=== PATIENT | female | born 1995 | race Caucasian/White ===

== ENCOUNTER 2018-11-02 06:38 | Inpatient (IN) | payer OTHER ==
[2018-11-02] MEDS ORDERED: Butorphanol Tartrate 1 MG/ML VIAL ONE (07:21)
[2018-11-02 07:23] VITALS: BMI 31.4
[2018-11-02] MEDS ORDERED: Fentanyl 4 mcg/Bup 0.1% Cadd 100 ML ONE (07:27)
[2018-11-02] MEDS ORDERED: OXYTOCIN IV SCH (07:30)
[2018-11-02] MEDS ORDERED: NS IV SCH (07:30)
[2018-11-02 07:35] LABS: Hemoglobin 12.9 g/dL (12.0-16.0); Mean Corpuscular HGB CONC 34.4 g/dL (32.0-36.0); Mean Corpuscular Hemoglobin 29.7 pg (27.0-31.0); Mean Corpuscular Volume 86.4 fL (78.0-98.0); Mean Platelet Volume 10.1 fL (7.4-10.4); Platelet Count 214 thou/uL (130-400); RBC Distribution Width 12.1 % (11.5-14.5); Red Blood Cell (RBC) Count 4.35 mill/uL (4.20-5.40)
[2018-11-02] MEDS ORDERED: Naloxone HCl 0.4 mg/ml Vial IVP PRN ×2 (08:00→08:06)
[2018-11-02] MEDS ORDERED: ePHEDrine/0.9% NaCl/PF SYRINGE 50 mg/10 ml SLOW IVP PRN (08:00)
[2018-11-02] MEDS ORDERED: Ondansetron PF 4 MG/2 ML Vial IVP PRN ×2 (08:00→09:44)
[2018-11-02] MEDS ORDERED: Promethazine HCl 25 MG/ML VIAL IM PRN ×2 (08:06→09:44)
[2018-11-02] MEDS ORDERED: Acetaminophen 325 MG TAB PO PRN (08:06)
[2018-11-02] MEDS ORDERED: diphenhydrAMINE 50 MG/ML VIAL IVP PRN (08:06)
[2018-11-02] MEDS ORDERED: Lactated Ringer's 500 ML IV PRN (08:06)
[2018-11-02] MEDS ORDERED: Eucerin (Mineral Oil/Petrolatum,White) 30 gm Jar TOP PRN (08:06)
--- NOTE | 2018-11-02 08:11 | PDOC.LDHP ---
Labor and Delivery H&P Chief complaint: contractions HPI: 23 y/o at 39 weeks and 2/7 days presents at 7cm this morning in labor. Current gestational age (weeks): 39 Due date: 11/07/18 Grav: 2 Para: 1 Current complications: none Abnormal US findings: No Current medications: pre-jermain vitamins Previous surgical history: none Allergies/Adverse Reactions: Allergies Allergy/AdvReac Type Severity Reaction Status Date / Time No Known Allergies Allergy Unverified 11/02/18 07:16 Social history: none - Physical Exam Vital signs reviewed and normal: yes General: NAD, resting Heart: RRR Lungs: nonlabored breathing Abdomen: NTTP Extremeties: no edema FHT: category 1 - Assessment L&D Assessment: term patient in labor - Plan Plan: admit to L&D, labor augmentation if indicated
[2018-11-02 08:15] LABS: HBSAg Index 0.28 S/CO (0-0.99); Hep B Surf Ag Non-Reactive S/CO (NonReactive); Syphilis Antibody Nonreactive (Nonreactive); Syphilis Antibody Index 0.03 S/CO (<1.00 Non-Reactive)
[2018-11-02] MEDS ORDERED: Communication Order-Pharmacy FS SCH (08:15)
[2018-11-02] MEDS ORDERED: Fentanyl 4 mcg/Bupivacaine 0.1% Cassette 100 ML EPIDURAL SCH (08:15)
[2018-11-02] MEDS ORDERED: NS w/ Oxytocin 10 units 500 ML ONE (08:54)
[2018-11-02] MEDS ORDERED: HYDROcodone/Acetaminophen 5/325 mg Tablet PO PRN ×2 (09:44)
[2018-11-02] MEDS ORDERED: Misoprostol 200 MCG TAB VAG PRN (09:44)
[2018-11-02] MEDS ORDERED: Bisacodyl 10 MG SUPP PR PRN (09:44)
[2018-11-02] MEDS ORDERED: Milk Of Magnesia 30 ML UDCUP PO PRN (09:44)
[2018-11-02] MEDS ORDERED: Measles/Mumps/Rubella 10 MCG/0.5 ML VIAL SC ONE (09:44)
[2018-11-02] MEDS ORDERED: Methylergonovine 0.2 MG/ML VIAL IM PRN (09:44)
[2018-11-02] MEDS ORDERED: diphenhydrAMINE 25 MG CAP PO PRN (09:44)
[2018-11-02] MEDS ORDERED: Adacel (T-DAP) 0.5 ML SYRINGE IM ONE (09:44)
[2018-11-02] MEDS ORDERED: Preparation H Ointment 28 GM TUBE PR PRN (09:44)
[2018-11-02] MEDS ORDERED: Varicella virus, LIVE 0.5 ML VIAL SC ONE (09:44)
[2018-11-02] MEDS ORDERED: Benzocaine-Menthol 82.5 ML CAN TOP PRN (09:44)
[2018-11-02] MEDS ORDERED: NS / Oxytocin 40 units/1000ml 1,000 ML IV SCH (09:44)
[2018-11-02] MEDS ORDERED: Lanolin Ointment 7 GM TUBE TOP PRN (09:44)
[2018-11-02] MEDS: Ferrous Sulfate 325 MG TAB PO SCH (12:32)
[2018-11-02] MEDS: Ibuprofen 800 MG TAB PO SCH ×2 (14:00→21:37)
[2018-11-02] MEDS: Docusate Calcium (SURFAK) 240 MG CAP PO SCH (21:37)
[2018-11-03] MEDS: Ibuprofen 800 MG TAB PO SCH ×2 (05:18→14:11)
[2018-11-03 06:52] LABS: Hemoglobin 10.9 g/dL (12.0-16.0); Mean Corpuscular HGB CONC 33.9 g/dL (32.0-36.0); Mean Corpuscular Hemoglobin 30.4 pg (27.0-31.0); Mean Corpuscular Volume 89.7 fL (78.0-98.0); Platelet Count 165 thou/uL (130-400); Red Blood Cell (RBC) Count 3.57 mill/uL (4.20-5.40); White Blood Cell (WBC) Count 12.2 thou/uL (4.8-10.8)
[2018-11-03] MEDS: Ferrous Sulfate 325 MG TAB PO SCH ×2 (07:57→17:01)
[2018-11-03 08:30] VITALS: BP 121/80; TEMP 98
[2018-11-03] MEDS: Docusate Calcium (SURFAK) 240 MG CAP PO SCH (09:02)
--- NOTE | 2018-11-03 11:20 | PDOC.PP ---
Post Progress Note Post Day #: 1 PO intake tolerated: yes Flatus: yes Ambulation: yes Vital Signs (12 hours) Temp Pulse Resp BP Pulse Ox 11/03/18 08:00 98.0 F 82 20 121/80 97 11/03/18 05:15 98.9 F 80 16 129/60 11/02/18 23:45 98.8 F 86 16 116/71 Weight Weight 183 lb - Physical Examination General: NAD Cardiovascular: no m/r/g, RRR Respiratory: clear to auscultation bilaterally, non-labored breathing Abdominal: + bowel sounds, lochia, no distention Extremities: negative homans (B) Neurological: no gross focal deficits Psychiatric: A&Ox3, normal affect Result Diagrams: 11/03/18 06:22 Additional Labs: Post Labs Blood Type A POSITIVE 11/02/18 08:33 Hep Bs Antigen Non-Reactive S/CO (NonReactive) 11/02/18 07:19
== END 2018-11-03 17:43 | disposition home or self-care (01) | DRG 807 ==
LOC: L&D/OP 06:38 → L&D 07:20 → 3SW 11:45
PROVIDERS: ADMIT Obstetrics & Gynecology; ATTEND Obstetrics & Gynecology
PROC: 10E0XZZ Delivery of Products of Conception, External Approach (ICD-10-PCS; principal; 2018-11-02)
PROC: 10907ZC Drainage of Amniotic Fluid, Therapeutic from Products of Conception, Via Natural or Artificial Opening (ICD-10-PCS; 2018-11-02)
DX: O77.0 Labor and delivery complicated by meconium in amniotic fluid (principal); Z37.0 Single live birth; Z3A.39 39 weeks gestation of pregnancy
CPT/HCPCS: 36415; 51702; 85027; 86780; 86850; 86900; 86901; 87340; 99285; J0595; J2590